=== PATIENT | female | born 1975 | race Two or more races ===

== ENCOUNTER 2022-07-20 22:31 | Emergency (ER) | payer MEDICAID, OTHER ==
[2022-07-20 22:34] VITALS: BP 166/98
[2022-07-20 23:12] LABS: Basophils # (auto) 0 10 ^3/uL (0-0.2); Basophils % (auto) 0.4 % (0.0-2.0); Eosinophils # (auto) 0.1 10 ^3/uL (0-0.8); Eosinophils % (auto) 0.7 % (0.0-7.0); Hematocrit 39.6 % (36.0-46.0); Hemoglobin 13.5 g/dL (12.2-16.2); Lymphocytes # (auto) 2.4 10 ^3/uL (0.4-5.4); Lymphocytes % (auto) 30.8 % (10.0-50.0); Mean Corpuscular Hemoglobin 31.5 pg (28.0-32.0); Mean Corpuscular Hgb Conc. 34.1 g/dL (32.0-36.0); Mean Corpuscular Volume 92.3 fL (80.0-100.0); Monocytes # (auto) 0.4 10 ^3/uL (0-1.3); Monocytes % (auto) 5.3 % (0.0-12.0); Neutrophils # (auto) 4.9 10 ^3/uL (1.6-8.6); Neutrophils % (auto) 62.8 % (37.0-80.0); Nucleated Red Blood Cells % 0.1 %; Red Blood Cells 4.29 10^6/uL (4.0-5.20); Red Cell Distribution Width 13.2 % (11.8-14.3); White Blood Cell 7.8 10^3/uL (4.4-10.8)
[2022-07-20 23:31] LABS: Calcium 8.7 mg/dL (8.5-10.1)
[2022-07-20 23:34] LABS: Albumin 3.9 g/dL (3.4-5.0)
[2022-07-20 23:37] LABS: Bilirubin, Total 0.6 mg/dL (0.2-1.0); Total Protein 7.7 g/dL (6.4-8.2)
[2022-07-21] MEDS ORDERED: SENN8.6C PO (03:32)
[2022-07-21] MEDS ORDERED: HYDR5CRE3 PR (03:32)
== END 2022-07-21 05:07 | disposition home or self-care (01) ==
LOC: ER 22:31
DX: K64.9 Unspecified hemorrhoids (principal); K62.89 Other specified diseases of anus and rectum
CPT/HCPCS: 36415; 71045; 74176; 80053; 84484; 85025